=== PATIENT | male | born 1965 | race Caucasian/White ===

== ENCOUNTER 2018-08-03 23:44 | Emergency (ER) | payer OTHER ==
[2018-08-04] MEDS: DEXAMETHASONE 10 MG/ML 1 ML INJ IM (00:32)
[2018-08-04] MEDS: KETOROLAC 30 MG INJ IM (00:32)
== END 2018-08-04 01:23 | disposition home or self-care (01) ==
LOC: FTE 23:44
DX: M25.561 Pain in right knee (principal)
CPT/HCPCS: 73562; 96372; 99284-25